=== PATIENT | female | born 1970 | race Caucasian/White ===

== ENCOUNTER 2016-12-17 19:06 | Emergency (ER) | payer MEDICARE ==
[~2016-12-17] VITALS: Ht 175.3 cm; Wt 105.7 kg
[2016-12-17] MEDS ORDERED: SODIUM CHLORIDE FLUSH 10ML SYR IVF ONE (19:30)
[2016-12-17] MEDS ORDERED: ONDANSETRON 2MG/ML, 2ML IVPush ONE (19:30)
[2016-12-17] MEDS ORDERED: MORPHINE SULFATE 4 MG/ML, 1ML IVPush PRN (19:30)
[2016-12-17] MEDS ORDERED: KETOROLAC 30 MG/1 ML IVPush ONE (19:30)
[2016-12-17 19:47] LABS: HEMATOCRIT 38.7 % (34.6-47.8); HEMOGLOBIN 12.7 g/dL (11.7-16.4); WHITE BLOOD COUNT 5.7 x10^3/uL (3.4-10)
[2016-12-17 19:55] LABS: BLOOD UREA NITROGEN 12 mg/dL (7-18)
[2016-12-17] MEDS ORDERED: KETOROLAC 30 MG/1 ML ONE (21:09)
[2016-12-17] MEDS ORDERED: ONDANSETRON 2MG/ML, 2ML ONE (21:09)
[2016-12-17] MEDS ORDERED: MORPHINE SULFATE 4 MG/ML, 1ML ONE (21:09)
[2016-12-17 21:37] VITALS: BP 115/55
== END 2016-12-17 21:40 | disposition home or self-care (01) ==
LOC: ED 21:30
DX: N20.2 Calculus of kidney with calculus of ureter (principal); I10 Essential (primary) hypertension; Z90.710 Acquired absence of both cervix and uterus; Z88.1 Allergy status to other antibiotic agents; Z88.5 Allergy status to narcotic agent
CPT/HCPCS: 36415; 76770; 80048; 81001; 82040; 85025; 96374; 96375; 99285; J1885; J2405